=== PATIENT | male | born 1970 | race Caucasian/White ===

== ENCOUNTER 2017-04-17 14:45 | Inpatient (IN) | payer OTHER ==
--- NOTE | 2017-04-17 14:43 | EDPHY ---
H & P HPI/ROS: CHIEF COMPLAINT: Cardiac alert HISTORY OF PRESENT ILLNESS: 46-year-old male presents with an acute anterior WI. He was hiking on a steep trail at noon when he experienced sudden onset of epigastric and chest burning, described as heartburn. The heartburn sensation was severe, 10/10 and associated with diaphoresis. EMS was called. Upon their arrival, monitor showed an acute anterior WI. Aspirin 324 mg orally given. Nitroglycerin sublingually given with some relief in pain. [place] IV given for pain control. He was transported down the trail. Several episodes of vomiting; Zofran 4 mg x3 and Phenergan 12.5 mg once given for vomiting. He continues to have dry heaves. His pain is now rated 6/10. Vital signs were stable EN route. No prior history of heart disease. REVIEW OF SYSTEMS: Constitutional: No fever, no chills Eyes: No visual changes ENT: No sore throat Respiratory: No cough, no shortness of breath Gastrointestinal: No nausea, no vomiting, no abdominal pain Genitourinary: no dysuria Musculoskeletal: No leg pain or swelling Skin: No rash Neurological: No headache, no weakness Psychiatric: No depression Past Medical/Surgical History: Denies Social History: Visiting from [place]. Physical Exam: General Appearance: Alert, dry heaves on arrival Eyes: Pupils equal and round, no conjunctival pallor or injection ENT, Mouth: Mucous membranes moist Neck: Normal inspection Respiratory: Lungs are clear to auscultation Cardiovascular: Regular rate and rhythm Gastrointestinal: Abdomen is soft and non-tender Neurological: A&O, nonfocal exam Skin: Warm and dry, no rash Extremities: Nontender, no pedal edema Psychiatric: Anxious Constitutional: Initial Vital Signs Temperature (C) 36.9 C 04/17/17 14:45 Heart Rate 61 04/17/17 14:45 Respiratory Rate 20 04/17/17 14:45 Blood Pressure 140/88 H 04/17/17 14:45 O2 Sat (%) 99 04/17/17 14:45 O2 Delivery Mode Non-Rebreather Mask O2 (L/minute) 15 Allergies/Adverse Reactions: No Known Allergies Allergy (Unverified 04/17/17 15:01) Home Medications: Medication Instructions Recorded Albuterol Sulfate [Proair Hfa] 2 puffs IH Q4H PRN 04/17/17 Ciclopirox Olamine [Ciclopirox] 15 gm TP BID 04/17/17 Cyclobenzaprine [Cyclobenzaprine 5 mg PO TID PRN 04/17/17 HCl] Fluticasone/Salmeter 250/50Mcg 1 puffs IH BID 04/17/17 [Advair 250/50 (*)] Triamcinolone 0.1% [Triamcinolone 1 liset TP BID 04/17/17 0.1% Cream (*)] Valacyclovir HCl [Valtrex] 2,000 mg PO BID PRN 04/17/17 Medical Decision Making - Diagnostics EKG Interpretation: EKG interpreted by me reveals normal sinus rhythm, ST segment elevation in the anteriolateral leads. Imaging Results: Imaging Impressions Chest X-Ray 04/17/17 14:50 Impression: Negative portable chest. ED Course/Re-evaluation: 14:45 Met EMS at bedside. EKG reveals normal sinus rhythm, ST segment elevation in the anterior lateral leads. A 2nd IV was placed and the patient was prepped for the cath lab technologist. 14:49 Stat portable chest x-ray independently reviewed by me reveals no acute disease.. 14:50 4mg morphine IV for pain control. Sublingual nitro x2. 14:55 Patient concerned he may have vomited up aspirin. 324mg PO aspirin given. 15:03 onset of V-fib on monitor while I'm in the room. 200J administered. Began CPR. CPR for a few minutes. CPR stopped, pt in NSR. BP adequate. Pt alert, wondering what happened. Amiodarone 300mg IV administered. BP 115/79 after amiodarone. 15:05 Dr. Love at bedside. Lopressor 5mg IV x 1. Pt taken emergently to the cath lab technologist. No further dysrhythmias. This patient utilized 45 minutes of critical care time exclusive of unbundled procedures. Differential Diagnosis: Differential diagnosis includes though it is not limited to pneumonia, pneumothorax, pulmonary embolism, aortic dissection, pericarditis, acute coronary syndrome. - Data Points Laboratory Results: Laboratory Results 04/17/17 14:55 04/17/17 14:55 04/17/17 04/17/17 04/17/17 14:55 14:55 14:55 WBC 14.07 10^3/uL H 10^3/uL (3.80-9.50) RBC 5.47 10^6/uL 10^6/uL (4.40-6.38) Hgb 15.8 g/dL g/dL (13.7-17.5) Hct 44.2 % % (40.0-51.0) MCV 80.8 fL L fL (81.5-99.8) MCH 28.9 pg pg (27.9-34.1) MCHC 35.7 g/dL g/dL (32.4-36.7) RDW 13.0 % % (11.5-15.2) Plt Count 332 10^3/uL 10^3/uL (150-400) MPV 9.5 fL fL (8.7-11.7) Neut % (Auto) 81.0 % H % (39.3-74.2) Lymph % (Auto) 13.8 % L % (15.0-45.0) [place] % (Auto) 4.2 % L % (4.5-13.0) Eos % (Auto) 0.3 % L % (0.6-7.6) Baso % (Auto) 0.2 % L % (0.3-1.7) Nucleat RBC Rel Count 0.0 % % (0.0-0.2) Absolute Neuts (auto) 11.40 10^3/uL H 10^3/uL (1.70-6.50) Absolute Lymphs (auto) 1.94 10^3/uL 10^3/uL (1.00-3.00) Absolute Monos (auto) 0.59 10^3/uL 10^3/uL (0.30-0.80) Absolute Eos (auto) 0.04 10^3/uL 10^3/uL (0.03-0.40) Absolute Basos (auto) 0.03 10^3/uL 10^3/uL (0.02-0.10) Absolute Nucleated RBC 0.00 10^3/uL 10^3/uL (0-0.01) Immature Gran % 0.5 % % (0.0-1.1) Immature Gran # 0.07 10^3/uL 10^3/uL (0.00-0.10) PT 14.2 SEC SEC (12.0-15.0) INR 1.11 (0.83-1.16) APTT 23.9 SEC SEC (23.0-38.0) Sodium 141 mEq/L mEq/L (134-144) Potassium 4.7 mEq/L mEq/L (3.5-5.2) Chloride 106 mEq/L mEq/L (97-110) Carbon Dioxide 18 mEq/l L mEq/l (22-31) Anion Gap 17 mEq/L H mEq/L (8-16) BUN 20 mg/dL mg/dL (7-23) Creatinine 1.3 mg/dL mg/dL (0.7-1.3) Estimated GFR 59 Glucose 155 mg/dL H mg/dL (70-100) Calcium 10.4 mg/dL mg/dL (8.5-10.4) Troponin I 0.034 ng/mL ng/mL (0-0.034) NT-Pro-B Natriuret Pep < 11 pg/mL pg/mL (0-125) Medications Given: Discontinued Medications Aspirin (Aspirin) 324 mg PO EDNOW ONE Stop: 04/17/17 15:22 Last Admin: 04/17/17 14:57 Dose: 324 mg Aspirin Buffered (Aspirin Ec) 325 mg PO ONCE ONE Stop: 04/17/17 15:59 Last Admin: 04/17/17 17:46 Dose: Not Given Amiodarone HCl 300 mg/ (Dextrose) 106 mls @ 318 mls/hr IV ONCE ONE Stop: 04/17/17 15:40 Last Admin: 04/17/17 15:06 Dose: 106 mls Sodium Chloride (Ns) 1,000 mls @ 0 mls/hr IV ONCE ONE; Wide Open PRN Reason: Protocol Stop: 04/17/17 15:29 Last Admin: 04/17/17 15:05 Dose: 1,000 mls Metoprolol Tartrate (Lopressor Injection) 15 mg IVP EDNOW ONE Stop: 04/17/17 15:25 Last Admin: 04/17/17 15:09 Dose: 5 mg Morphine Sulfate (Morphine) 4 mg IVP EDNOW ONE Stop: 04/17/17 15:22 Last Admin: 04/17/17 14:53 Dose: 4 mg Nitroglycerin (Nitrostat) 0.4 mg SL EDNOW ONE Stop: 04/17/17 15:24 Last Admin: 04/17/17 14:58 Dose: 0.4 mg Ticagrelor (Brilinta) 180 mg PO ONCE ONE Stop: 04/17/17 15:59 Last Admin: 04/17/17 17:47 Dose: Not Given Departure - Departure Disposition: [facility] Inpatient Acute Clinical Impression: Acute coronary syndrome Condition: Critical Report Scribed for: Jenni Lemos Report Scribed by: Judith Leonardo Date of Report: 04/17/17 Time of Report: 14:44 Physician Review and Approval Statement: 04/17/17 14:44 Portions of this note were transcribed by a medical videographer. I personally performed a history, physical exam, medical decision making, and confirmed accuracy of information the transcribed note.
[2017-04-17] MEDS ORDERED: NITROGLYCERIN 0.4 MG BTL SL ONE ×2 (14:53→15:23)
[2017-04-17] MEDS ORDERED: ASPIRIN 81 MG CHEWABLE TAB ONE (14:56)
[2017-04-17] MEDS ORDERED: AMIODARONE HCL 150 MG/3 ML VIAL ONE (15:03)
[2017-04-17] MEDS ORDERED: LIDOCAINE 1% 300 MG/30 ML SDV ONE (15:06)
--- NOTE | 2017-04-17 15:06 | CPEKG ---
Heart Rate: 55 RR Interval: 1091 P-R Interval: 172 QRSD Interval: 106 QT Interval: 472 QTC Interval: 452 P [place]: 45 QRS [place]: 66 T Wave [place]: 43 EKG Severity - ABNORMAL ECG - EKG Impression: SINUS RHYTHM EKG Impression: Acute anterior lateral NM Electronically Signed By: Jenni Lemos 17-Apr-2017 17:52:25
[2017-04-17] MEDS ORDERED: MIDAZOLAM 2 MG/2 ML VIAL ONE (15:07)
[2017-04-17] MEDS ORDERED: METOPROLOL TARTRATE 5 MG/5 ML INJ ONE (15:07)
[2017-04-17] MEDS ORDERED: IOPAMIDOL (ISOVUE-370) 150 ML BTL IV ONE ×2 (15:07→15:45)
[2017-04-17] MEDS ORDERED: fentaNYL 100 MCG/2 ML INJ ONE (15:07)
[2017-04-17 15:10] LABS: % IMMATURE GRANULYOCYTES 0.5 % (0.0-1.1); ABSOLUTE IMMATURE GRANULOCYTES 0.07 10^3/uL (0.00-0.10); ADD DIFF? NO; ADD MORPH? NO; ADD SCAN? NO; ATYPICAL LYMPHOCYTE FLAG 0 (0-99); FRAGMENT RBC FLAG 0 (0-99); HEMATOCRIT 44.2 % (40.0-51.0); HEMOGLOBIN 15.8 g/dL (13.7-17.5); LEFT SHIFT FLG 10 (0-99); LIPEMIA HEMOLYSIS FLAG 90 (0-99); MEAN CELL HEMOGLOBIN 28.9 pg (27.9-34.1); MEAN CELL HEMOGLOBIN CONCENTR. 35.7 g/dL (32.4-36.7); MEAN CELL VOLUME 80.8 fL (81.5-99.8); MEAN PLATELET VOLUME 9.5 fL (8.7-11.7); PLATELET CLUMPS FLAG 0 (0-99); PLATELET COUNT 332 10^3/uL (150-400); RED BLOOD CELL COUNT 5.47 10^6/uL (4.40-6.38)
[2017-04-17 15:18] LABS: INR 1.11 (0.83-1.16); PROTIME(PATIENT) 14.2 SEC (12.0-15.0)
[2017-04-17 15:19] LABS: APTT 23.9 SEC (23.0-38.0)
[2017-04-17] MEDS ORDERED: AMIODARONE HCL 300 MG in D5W 100 ML IV ONE (15:21)
[2017-04-17] MEDS ORDERED: ASPIRIN 81 MG CHEWABLE TAB PO ONE (15:21)
[2017-04-17] MEDS ORDERED: METOPROLOL TARTRATE 5 MG/5 ML INJ IVP ONE (15:24)
[2017-04-17 15:26] LABS: ANION GAP 17 mEq/L (8-16); CALCIUM 10.4 mg/dL (8.5-10.4); CARBON DIOXIDE 18 mEq/l (22-31); CHLORIDE 106 mEq/L (97-110); CREATININE 1.3 mg/dL (0.7-1.3); GLOMERULAR FILTRATION RATE 59; GLUCOSE 155 mg/dL (70-100); POTASSIUM 4.7 mEq/L (3.5-5.2); SODIUM 141 mEq/L (134-144)
[2017-04-17] MEDS ORDERED: HEPARIN 10,000 UNIT/10 ML MDV ONE (15:26)
[2017-04-17] MEDS ORDERED: NS 1,000 ML IV ONE (15:28)
[2017-04-17] MEDS ORDERED: ATROPINE SULFATE 1 MG/10 ML SYR ONE (15:29)
[2017-04-17] MEDS ORDERED: EPINEPHrine 1 MG/10 ML SYR IVP ONE ×2 (15:29→15:55)
[2017-04-17 15:38] LABS: TROPONIN I 0.034 ng/mL (0-0.034)
[2017-04-17] MEDS ORDERED: TEMAZEPAM 15 MG CAP PO PRN (15:58)
[2017-04-17] MEDS ORDERED: TICAGRELOR 90 MG TAB PO ONE (15:58)
[2017-04-17] MEDS ORDERED: ASPIRIN EC 325 MG TAB PO ONE (15:58)
[2017-04-17] MEDS ORDERED: ATROPINE SULFATE 1 MG/10 ML SYR IVP PRN (15:58)
[2017-04-17] MEDS ORDERED: NITROGLYCERIN 0.4 MG BTL SL PRN (15:58)
[2017-04-17] MEDS ORDERED: HYDROCODONE/APAP 5/325 TAB PO PRN (15:58)
[2017-04-17] MEDS ORDERED: ONDANSETRON 4 MG/2 ML VIAL IVP PRN (15:58)
[2017-04-17] MEDS ORDERED: LORazepam 2 MG/ML INJ IVP PRN (15:58)
[2017-04-17] MEDS ORDERED: NS 1,000 ML IV SCH (16:00)
[2017-04-17] MEDS ORDERED: TICAGRELOR 90 MG TAB ONE (16:05)
--- NOTE | 2017-04-17 16:08 | PDDXCAT ---
Diagnostic Cath Note - . 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 ST segment elevation myocardial infarction with thrombotic occlusion of the proximal LAD. 2. Post PCI ejection fraction 40% with anteroapical akinesis. 3. Elevated filling pressures postprocedure Plan: Emergency PCI of the LAD Intervention: Procedure: PCI and stenting of the proximal LAD. Thrombectomy of the apical LAD with stenting. After reviewing diagnostic angiograms like to proceed with emergency angioplasty. Patient was anticoagulated with heparin. Integrilin infusion was begun. Using a 7 [place] JL4 guiding catheter left main coronary selectively intubated. Using a 0.014 luge wire the LAD stenosis was crossed and the wire placed in the distal vessel. Using a 2 mm balloon single inflation was performed in the proximal LAD reestablishing antegrade flow. Select disease with proximal stenting. A 4.0 by 20 mm synergy stent was placed across the proximal LAD stenosis. Was deployed doing a single inflation. Repeat orthogonal angiograms revealed MIGUEL grade 2 +flow. There was a cut off at the apex. Using a 2 mm balloon gentle inflation was performed at the apex without improvement. Thrombectomy was performed at the apex retrieving a small amount of dark thrombus. Repeat angiograms continued to show cut off. Patient was administered intracoronary nitroglycerin. A 2.25 x 16 mm cg stent was placed at the apex. It was deployed in a single inflation. Minimal penetration of dye into the stent was seen. A 4.5 by 15 mm NC balloon was used to post dilate the proximal LAD stent. At this point was elected to stop and pursue aggressive medical therapy. Impression: ST segment elevation myocardial infarction with proximal occlusion of the LAD status post successful PCI and stenting with a 4 x 20 mm synergy stent. Distal placement of a 2.25 x 16 synergy stent in the apical portion of the LAD with failure to establish flow to the apex. Patient will be continued on dual antiplatelet therapy uninterrupted for 1 year. 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 He will be begun on Willy inhibition, continue beta-consuelo, initiate eplerenone , high-dose statin therapy with clinical follow-up in the ICU. Patient Problems: Problems Problem Status Onset Acute coronary syndrome Acute
--- NOTE | 2017-04-17 16:11 | PDGENHP ---
History and Physical - Chief Complaint Chest pain - History of Present Illness 46-year-old male no prior cardiovascular history was [place] the [place]. He developed the acute onset of substernal chest pain 07/13. This was associated with significant diaphoresis. He was brought to the emergency department with an active cardiac alert. On arrival to the emergency department he had a ventricular fibrillation arrest requiring CPR and cardioversion. He was administered amiodarone. On my arrival he was having crushing 07/13 substernal chest pain associated with diaphoresis shortness of breath and feelings of impending doom. He was elected to proceed emergently to the cardiac catheterization lab for diagnostic and therapeutic angiogram. Allergies: None. Medications as an outpatient: None. Social history: Nonsmoker visiting from the [facility] area. Family history: Noncontributory. Surgical history: None. History Information - Allergies/Home Medication List Allergies/Adverse Reactions: No Known Allergies Allergy (Unverified 04/17/17 15:01) Home Medications: Advair 04/17/17 [Last Taken Unknown] I have personally reviewed and updated: family history, medical history, social history, surgical history - Past Medical History no pertinent PMH - Surgical History Reports: no pertinent surgical hx - Family History Positive for: non-pertinent - Social History Smoking Status: Never smoked Review of Systems ROS: 10pt was reviewed & negative except for what was stated in HPI & below Physical Exam Temp Pulse Resp BP Pulse Ox 36.9 C 61 22 H 115/69 100 04/17/17 14:45 04/17/17 15:10 04/17/17 15:10 04/17/17 15:10 04/17/17 15:10 Constitutional: uncomfortable Eyes: anicteric sclera Ears, Nose, Mouth, Throat: moist mucous membranes Cardiovascular: regular rate and rhythym, JVD, No systolic murmur Peripheral Pulses: 1+: carotid (R), carotid (L), 2+: femoral (R), femoral (L) Respiratory: no respiratory distress, no rales or rhonchi Gastrointestinal: normoactive bowel sounds, soft, non-tender abdomen, no palpable masses Genitourinary: no bladder fullness Skin: warm Musculoskeletal: full muscle strength, no muscle tenderness Neurologic: AAOx3 Psychiatric: anxious Lymph, Heme, Immunologic: no cervical LAD, no supraclavicular LAD Lab Data & Imaging Review 04/17/17 14:55 04/17/17 14:55 WBC 14.07 10^3/uL (3.80-9.50) H 04/17/17 14:55 RBC 5.47 10^6/uL (4.40-6.38) 04/17/17 14:55 Hgb 15.8 g/dL (13.7-17.5) 04/17/17 14:55 Hct 44.2 % (40.0-51.0) 04/17/17 14:55 MCV 80.8 fL (81.5-99.8) L 04/17/17 14:55 MCH 28.9 pg (27.9-34.1) 04/17/17 14:55 MCHC 35.7 g/dL (32.4-36.7) 04/17/17 14:55 RDW 13.0 % (11.5-15.2) 04/17/17 14:55 Plt Count 332 10^3/uL (150-400) 04/17/17 14:55 MPV 9.5 fL (8.7-11.7) 04/17/17 14:55 Neut % (Auto) 81.0 % (39.3-74.2) H 04/17/17 14:55 Lymph % (Auto) 13.8 % (15.0-45.0) L 04/17/17 14:55 [place] % (Auto) 4.2 % (4.5-13.0) L 04/17/17 14:55 Eos % (Auto) 0.3 % (0.6-7.6) L 04/17/17 14:55 Baso % (Auto) 0.2 % (0.3-1.7) L 04/17/17 14:55 Nucleat RBC Rel Count 0.0 % (0.0-0.2) 04/17/17 14:55 Absolute Neuts (auto) 11.40 10^3/uL (1.70-6.50) H 04/17/17 14:55 Absolute Lymphs (auto) 1.94 10^3/uL (1.00-3.00) 04/17/17 14:55 Absolute Monos (auto) 0.59 10^3/uL (0.30-0.80) 04/17/17 14:55 Absolute Eos (auto) 0.04 10^3/uL (0.03-0.40) 04/17/17 14:55 Absolute Basos (auto) 0.03 10^3/uL (0.02-0.10) 04/17/17 14:55 Absolute Nucleated RBC 0.00 10^3/uL (0-0.01) 04/17/17 14:55 Immature Gran % 0.5 % (0.0-1.1) 04/17/17 14:55 Immature Gran # 0.07 10^3/uL (0.00-0.10) 04/17/17 14:55 PT 14.2 SEC (12.0-15.0) 04/17/17 14:55 INR 1.11 (0.83-1.16) 04/17/17 14:55 APTT 23.9 SEC (23.0-38.0) 04/17/17 14:55 Sodium 141 mEq/L (134-144) 04/17/17 14:55 Potassium 4.7 mEq/L (3.5-5.2) 04/17/17 14:55 Chloride 106 mEq/L (97-110) 04/17/17 14:55 Carbon Dioxide 18 mEq/l (22-31) L 04/17/17 14:55 Anion Gap 17 mEq/L (8-16) H 04/17/17 14:55 BUN 20 mg/dL (7-23) 04/17/17 14:55 Creatinine 1.3 mg/dL (0.7-1.3) 04/17/17 14:55 Estimated GFR 59 04/17/17 14:55 Glucose 155 mg/dL (70-100) H 04/17/17 14:55 Calcium 10.4 mg/dL (8.5-10.4) 04/17/17 14:55 Troponin I 0.034 ng/mL (0-0.034) 04/17/17 14:55 NT-Pro-B Natriuret Pep < 11 pg/mL (0-125) 04/17/17 14:55 EKG Interpretation: Positive for: ST elevation Assessment & Plan Assessment: Acute coronary syndrome (Acute) ST segment elevation myocardial infarction. Status post ventricular fibrillation cardiac arrest. Plan: Emergency diagnostic therapeutic coronary angiogram.
--- NOTE | 2017-04-17 17:16 | CPEKG ---
Heart Rate: 59 RR Interval: 1017 P-R Interval: 188 QRSD Interval: 86 QT Interval: 468 QTC Interval: 464 P [place]: 45 QRS [place]: 81 T Wave [place]: 48 EKG Severity - NORMAL ECG - EKG Impression: SINUS RHYTHM EKG Impression: Acute anterolateral PR EKG Impression: Possible associated pericarditis EKG Impression: Evolving changes of acute anterolateral PR when compared with April 17, 2017, EKG Impression: 14:48 Electronically Signed By: Ramin Tirado 18-Apr-2017 07:53:19
[2017-04-17] MEDS: ATORVASTATIN CALCIUM 40 MG TAB PO SCH (18:16)
[2017-04-17] MEDS: CARVEDILOL 3.125 MG TAB PO SCH (19:06)
[2017-04-17 19:45] LABS: CK-MB INTERPRETATION POSITIVE (NEGATIVE)
[2017-04-17 21:27] LABS: INR 1.13 (0.83-1.16); PROTIME(PATIENT) 14.4 SEC (12.0-15.0)
[2017-04-17 21:28] LABS: APTT 30.8 SEC (23.0-38.0)
[2017-04-17 21:32] LABS: CK-MB INTERPRETATION POSITIVE (NEGATIVE)
[2017-04-17] MEDS: FUROSEMIDE 20 MG/2 ML VIAL IVP SCH (23:12)
[2017-04-18 01:49] LABS: CK-MB INTERPRETATION POSITIVE (NEGATIVE)
--- NOTE | 2017-04-18 03:20 | CPEKG ---
Heart Rate: 70 RR Interval: 857 P-R Interval: 266 QRSD Interval: 140 QT Interval: 484 QTC Interval: 523 P [place]: 0 QRS [place]: -102 T Wave [place]: 61 EKG Severity - ABNORMAL ECG - EKG Impression: SINUS RHYTHM EKG Impression: FIRST DEGREE AV BLOCK EKG Impression: RIGHT BUNDLE BRANCH BLOCK -- New since April 17, 2017, 17:15 EKG Impression: ANTERIOR INFARCT, EVOLVING EKG Impression: Can't rule out old inferior myocardial infarction. EKG Impression: Possible associated pericarditis. Electronically Signed By: Ramin Tirado 18-Apr-2017 07:51:12
[2017-04-18] MEDS: OXYCODONE/APAP 5/325 TAB PO PRN ×2 (04:01→20:10)
[2017-04-18] MEDS: TICAGRELOR 90 MG TAB PO SCH ×3 (04:09→21:03)
[2017-04-18 06:02] LABS: % IMMATURE GRANULYOCYTES 0.3 % (0.0-1.1); ABSOLUTE IMMATURE GRANULOCYTES 0.02 10^3/uL (0.00-0.10); ADD DIFF? NO; ADD MORPH? NO; ADD SCAN? NO; ATYPICAL LYMPHOCYTE FLAG 0 (0-99); FRAGMENT RBC FLAG 0 (0-99); HEMATOCRIT 38.1 % (40.0-51.0); HEMOGLOBIN 13.2 g/dL (13.7-17.5); LEFT SHIFT FLG 0 (0-99); LIPEMIA HEMOLYSIS FLAG 90 (0-99); MEAN CELL HEMOGLOBIN 28.9 pg (27.9-34.1); MEAN CELL HEMOGLOBIN CONCENTR. 34.6 g/dL (32.4-36.7); MEAN CELL VOLUME 83.4 fL (81.5-99.8); MEAN PLATELET VOLUME 9.2 fL (8.7-11.7); PLATELET CLUMPS FLAG 0 (0-99); PLATELET COUNT 228 10^3/uL (150-400); RED BLOOD CELL COUNT 4.57 10^6/uL (4.40-6.38); RED CELL DISTRIBUTION WIDTH 13.6 % (11.5-15.2)
[2017-04-18 06:21] LABS: ALANINE AMINOTRANSFERASE 42 IU/L (21-72); ALBUMIN 3.8 g/dL (3.5-5.0); ALKALINE PHOSPHATASE 34 IU/L (38-126); ANION GAP 9 mEq/L (8-16); ASPARTATE AMINOTRANSFERASE 161 IU/L (17-59); BILIRUBIN,TOTAL 3.1 mg/dL (0.1-1.4); BILIRUBIN-CONJUGATED 0.3 mg/dL (0.0-0.5); BILIRUBIN-UNCONJUGATED 2.8 mg/dL (0.0-1.1); CALCIUM 9.2 mg/dL (8.5-10.4); CARBON DIOXIDE 22 mEq/l (22-31); CHLORIDE 109 mEq/L (97-110); CHOLESTEROL 199 mg/dL (140-200); CREATININE 1.1 mg/dL (0.7-1.3); GLOMERULAR FILTRATION RATE > 60; GLUCOSE 93 mg/dL (70-100); HIGH DENSITY LIPOPROTEIN 51 mg/dL (40-65); LACTATE DEHYDROGENASE 799 IU/L (313-618); LDL/HDL RATIO 2.49 RATIO (1.00-3.64); LOW DENSITY LIPOPROTEIN 127 mg/dL (70-100); NON-HIGH DENSITY LIPOPROTEIN 148 mg/dL (90-129); POTASSIUM 4.2 mEq/L (3.5-5.2); SODIUM 140 mEq/L (134-144); TOTAL PROTEIN 6.4 g/dL (6.3-8.2); TRIGLYCERIDE 105 mg/dL (40-150); VERY LOW DENSITY LIPOPROTEINS 21 mg/dL (8-25)
[2017-04-18] MEDS ORDERED: FUROSEMIDE 20 MG/2 ML VIAL IVP ONE (08:18)
[2017-04-18] MEDS ORDERED: IBUPROFEN 200 MG TAB PO PRN (08:25)
[2017-04-18] MEDS: FUROSEMIDE 20 MG/2 ML VIAL IVP SCH ×2 (08:42→08:44)
[2017-04-18] MEDS: CARVEDILOL 3.125 MG TAB PO SCH ×2 (08:42→17:48)
[2017-04-18] MEDS: ASPIRIN EC 325 MG TAB PO SCH (08:43)
[2017-04-18] MEDS: ASPIRIN EC 81 MG TAB PO SCH (08:44)
--- NOTE | 2017-04-18 09:16 | SOAPPROG ---
[facility] Progress Note Assessment/Plan: Assessment: 1. STEMI status post PCI of the proximal LAD. 2. Status post VFIB cardiac arrest secondary to 1. 3. Ischemic cardiomyopathy ejection fraction 40% 4. Hyperlipidemia Procedures to date: ACLS with CPR and defibrillation. PCI LAD 04/17/2017 Impression: Day 1 status post anterior wall myocardial infarction treated by direct PCI. Ejection fraction 40% by ventriculogram. Overnight, modest ventricular ectopy. Chest wall discomfort post CPR and defibrillation. Stable hemodynamics. Markedly abnormal EKG with peak CPK so far 853. Plan: Transfer to PCU. Continue current medical therapy. Echocardiogram for LV recovery. Considerations for Life Vest prior to discharge. 04/18/17 09:12 Subjective: Doing well overnight without recurrent angina. Some chest wall tenderness to deep breaths and palpation. Patient denies palpitations, syncope, near syncope. He remains somewhat anxious. Family has arrived from [facility]. He denies PND orthopnea, peripheral edema. Objective: Laboratory Tests 04/17/17 04/17/17 04/18/17 19:02 20:50 01:05 Creatinine Creatine Kinase 216 364 H 853 H Troponin I 0.900 H 1.980 H 9.160 H LDL Cholesterol, Calc 04/18/17 05:50 Creatinine 1.1 Creatine Kinase Troponin I LDL Cholesterol, Calc 127 H Vital Signs Temp Pulse Resp BP Pulse Ox 37.5 C 63 20 114/74 96 04/18/17 04:00 04/18/17 08:42 04/18/17 08:00 04/18/17 08:42 04/18/17 08:00 Laboratory Results 04/18/17 05:50 04/18/17 05:50 04/17/17 04/18/17 04/19/17 05:59 05:59 05:59 Intake Total 1950 Output Total 1550 Balance 400 PT 14.4 SEC (12.0-15.0) 04/17/17 20:50 INR 1.13 (0.83-1.16) 04/17/17 20:50 Medications Generic Name Dose Route Start Last Admin Trade Name Freq PRN Reason Stop Dose Admin Aspirin Buffered 325 mg 04/18/17 09:00 04/18/17 08:43 Aspirin Ec PO 10/15/17 08:59 325 mg DAILY DANA Ticagrelor 90 mg 04/18/17 04:01 04/18/17 04:09 Brilinta PO 10/15/17 04:00 90 mg BID [facility] Atorvastatin Calcium 80 mg 04/17/17 16:00 04/17/17 18:16 Lipitor PO 10/14/17 15:59 80 mg DAILY [facility] Carvedilol 3.125 mg 04/17/17 18:00 04/18/17 08:42 Coreg PO 10/14/17 17:59 3.125 mg BIDMEAL [facility] Eplerenone 25 mg 04/18/17 09:00 Inspra PO 10/15/17 08:59 DAILY DANA Furosemide 20 mg 04/17/17 16:00 04/18/17 08:44 Lasix Injection IVP 10/14/17 15:59 Not Given DAILY [facility] Lisinopril 2.5 mg 04/18/17 09:00 Zestril PO 10/15/17 08:59 DAILY DANA Physical Exam - Physical Exam General Appearance: alert, no apparent distress EENT: PERRL/EOMI Neck: non-tender, full range of motion Respiratory: chest non-tender, lungs clear Cardiac/Chest: normal peripheral pulses, regular rate, rhythm, gallop, No edema , No JVD Peripheral Pulses: 1+: dorsalis-pedis (R), dorsalis-pedis (L), 2+: carotid (R), carotid (L), femoral (R) (Minimal ecchymosis, no bruit), femoral (L) Abdomen: normal bowel sounds, non-tender, soft Back: Normal inspection Skin: normal color, warm/dry Lymphatic: no adenopathy Extremities: normal range of motion, non-tender, No pedal edema, No calf tenderness Neuro/Psych: no motor/sensory deficits, alert, normal mood/affect ICD10 Worksheet Patient Problems: Problems Problem Status Onset Acute coronary syndrome Acute Review of Systems - Review of Systems Constitutional: denies: chills, fever EENTM: no symptoms reported Respiratory: no symptoms reported Cardiac: chest pain. denies: edema, irregular heart rate, lightheadedness, palpitations, syncope Gastrointestinal/Abdominal: no symptoms reported Genitourinary: no symptoms Musculoskelatal: no symptoms Skin: no symptoms Neurological: anxiety Hematologic/Lymphatic: no symptoms reported
[2017-04-18] MEDS: LISINOPRIL 2.5 MG TAB PO SCH (09:32)
[2017-04-18] MEDS: ATORVASTATIN CALCIUM 40 MG TAB PO SCH (09:33)
[2017-04-18 10:18] LABS: CK-MB INTERPRETATION POSITIVE (NEGATIVE)
--- NOTE | 2017-04-18 10:35 | ECHO ---
[id number] + + [address] : : [place] [address] : : [phone] + + Adult Echocardiographic Report + ---+ :Name: Melissa GRACE Date: 04/18/2017 09:09 AM : : Hospital Admission Number: [id number] Location: 252: :: 1970 Gender: Male Height: 69 in : :Age: 46 yrs Race: WH Weight: 180 lb : :Reason For Study: LV recovery post anterior NH : : BSA: 2.0 meters2 : :History: No previous : + ---+ MMode/2D Measurements \T\ Calculations IVSd: 0.89 cm LVIDd: 4.4 cmFS: 25.8 % LVLd ap4: 7.5 cm LVPWd: 1.0 cm LVIDs: 3.3 cmEDV(Teich): 89.4 ml EDV(MOD-sp4): 79.0 ml ESV(Teich): 43.9 ml LVLs ap4: 6.2 cm EF(Teich): 50.9 % ESV(MOD-sp4): 30.0 ml EF(MOD-sp4): 62.0 % SV(MOD-sp4): 49.0 ml Normal Measurement Values: + + :LVIDd (3.5-5.7cm) IVSd (0.6-1.1cm) LVPWd (0.6-1.1cm) Aortic Root (2.0-3.7cm)Left Atrium (1.5-4.0cm): :LV Vol(d) (76-115ml) LV Vol(s) (29-48ml) [place] Fraction (50-65%)PV Sea (0.6- 1.2m/s) TV Sea (0.4-1.0m/s) : :MV E Sea (0.8-1.0m/s)MV A Sea (0.3-1.0m/s)LVOT Sea (0.7-1.2m/s) Asc Ao Sea ( 0.9-1.8m/s) : + + Left Ventricle The left ventricle is normal in size. Ejection Fraction = 50-55%. Akinetic [place]. Pericardium/Pleural There is a fat pad seen. There is no pericardial effusion. Conclusion This is a limited study to evaluate LV function. Akinetic [place] Ejection Fraction = 50-55%. Final Reading Physician: Merary Bates signed on 04/18/2017 10:34 AM Ordering Physician: WADE MONIQUE Performed By: Liliana Michael
[2017-04-18] MEDS: EPLERENONE 25 MG TAB PO SCH (12:08)
--- NOTE | 2017-04-18 13:27 | CPEKG ---
Heart Rate: 68 RR Interval: 882 P-R Interval: 172 QRSD Interval: 94 QT Interval: 452 QTC Interval: 481 P [place]: 41 QRS [place]: 84 T Wave [place]: 57 EKG Severity - BORDERLINE ECG - EKG Impression: SINUS RHYTHM EKG Impression: ANTERIOR ST ELEVATION EKG Impression: BORDERLINE PROLONGED QT INTERVAL EKG Impression: RBBB PATTERN ABSENT IN THIS ECG (NOTED IN PRIOR) Electronically Signed By: Denzel Wiley 19-Apr-2017 10:07:32
[2017-04-18 17:07] LABS: CK-MB INTERPRETATION POSITIVE (NEGATIVE)
[2017-04-19 01:28] LABS: HEMOGLOBIN A1C 5.2 % (4.0-6.0)
[2017-04-19 07:51] VITALS: TEMP 98.4
--- NOTE | 2017-04-19 08:42 | CPEKG ---
Heart Rate: 70 RR Interval: 857 P-R Interval: 180 QRSD Interval: 92 QT Interval: 488 QTC Interval: 527 P [place]: 37 QRS [place]: 93 T Wave [place]: 69 EKG Severity - ABNORMAL ECG - EKG Impression: SINUS RHYTHM EKG Impression: BORDERLINE RIGHT AXIS DEVIATION EKG Impression: ABNORMAL T, CONSIDER ISCHEMIA, LATERAL LEADS EKG Impression: ST ELEVATION, ANTEROLATERAL LEADS EKG Impression: PROLONGED QT INTERVAL Electronically Signed By: Denzel Wiley 19-Apr-2017 10:08:03
[2017-04-19] MEDS: EPLERENONE 25 MG TAB PO SCH (08:45)
[2017-04-19] MEDS: LISINOPRIL 2.5 MG TAB PO SCH (08:45)
[2017-04-19] MEDS: ATORVASTATIN CALCIUM 40 MG TAB PO SCH (08:46)
[2017-04-19] MEDS: CARVEDILOL 3.125 MG TAB PO SCH (08:46)
[2017-04-19] MEDS: TICAGRELOR 90 MG TAB PO SCH (08:47)
[2017-04-19] MEDS: ASPIRIN EC 325 MG TAB PO SCH (08:47)
[2017-04-19] MEDS: FUROSEMIDE 20 MG/2 ML VIAL IVP SCH (09:00)
[2017-04-19 12:44] VITALS: BP 94/59; PULSE 59; RESP 14; O2SAT 94
[2017-04-19] MEDS: ASPIRIN EC 81 MG TAB PO SCH (12:55)
[2017-04-19] MEDS ORDERED: PNEUMOCOCCAL 0.5ML VACCINE VIAL IM ONE (13:36)
--- NOTE | 2017-04-19 23:45 | GDS ---
[f rep st] DISCHARGE SUMMARY ADMISSION DIAGNOSIS: Acute anterior wall myocardial infarction complicated by cardiac arrest. DISCHARGE DIAGNOSIS: 1. Acute anterior wall myocardial infarction complicated by cardiac arrest. 2. Hyperlipidemia. DISCHARGE MEDICATIONS: Please see the attached form 17. CONSULTATION DURING THIS HOSPITALIZATION: Dr. Drew Love, Cardiology. Office number . PROCEDURES PERFORMED DURING THIS HOSPITALIZATION: 1. Left heart catheterization, coronary and ventricular angiography with PCI and stenting of the LA D. 2. Echocardiogram. FOLLOWUP: With Dr. Love on Wednesday, low-level treadmill. Referral to cardiac rehabilitation. Follow up with Primary Care, [facility] with Dr. Thomas. HOSPITAL COURSE: The patient is 46 years old. He was hiking in [place] when he began experienci ng substernal chest pain. He was found to have a large anterior wall myocardial infarction by EKG. On arrival to the emergency department, he had a cardiac arrest requiring CPR with fracture of the ribs and required defibrillation. He was taken the cardiac quality assurance qa lab technician where he was found to have occl uded left anterior descending coronary artery proximally. He underwent successful PCI and stenting with thrombectomy. End result revealed excellent flow except for an apical portion of the LAD. Ini tial ejection fraction was 35%. Followup ejection fraction by echo showed LV recovery to 50%. The patient tolerated the procedure well. The 1st day was notable for frequent PVCs, by the 2nd day, th matilde had stopped. He had stable hemodynamics. PHYSICAL EXAMINATION: On the day of discharge: VITAL SIGNS: Blood pressure was 119/70, his heart r ate is 62. GENERAL: A well-nourished, well-developed male. CHEST: Clear to palpation. He had cr epitus on the right chest, consistent with CPR and fracture. He had mildly decreased breath sounds. CARDIAC: Regular rate and rhythm. There was no JVP. EXTREMITIES: His puncture site was healing well without significant ecchymosis, erythema or edema. He had intact distal pulses. His EKG showed evolving anterior wall myocardial infarction. LABORATORY DATA: Remarkable for a peak CPK of 1966, and a peak troponin of 126. His LDL cholestero l was noted to be 127 mg/dL. He was started on high-dose statin therapy, which he was tolerating we ll. PROBLEM LIST: 1. Status post anterior wall myocardial infarction with percutaneous coronary intervention and sten ting of the left anterior descending artery. The patient will be continued on dual antiplatelet the rapy for 1 year. A Synergy stent was used. He will be discharged home with EKG to take with him. Patient will be continued on aggressive medical therapy with beta blockade, Coreg 3.125 twice daily with up titration recommended. Low-dose KITA inhibitor with lisinopril 2.5 mg a day, as well as high dose Lipitor. He will have a low level treadmill before traveling. I encouraged him to go to [facility] rehabilitation. 2. Depression discussed. Questions were answered with him and his family. DISPOSITION: He is discharged home in stable condition with followup as outlined above. /[id number]/MODL
== END 2017-04-19 15:25 | disposition home or self-care (01) | DRG 246 ==
LOC: F2N 16:42 → F2W 04-18 14:20
PROVIDERS: ADMIT Internal Medicine Interventional Cardiology; ATTEND Internal Medicine Interventional Cardiology
PROC: 4A023N7 Measurement of Cardiac Sampling and Pressure, Left Heart, Percutaneous Approach (ICD-10-PCS; principal; 2017-04-17)
PROC: 02C03ZZ Extirpation of Matter from Coronary Artery, One Artery, Percutaneous Approach (ICD-10-PCS; principal; 2017-04-17)
PROC: 027034Z Dilation of Coronary Artery, One Artery with Drug-eluting Intraluminal Device, Percutaneous Approach (ICD-10-PCS; principal; 2017-04-17)
PROC: B2151ZZ Fluoroscopy of Left Heart using Low Osmolar Contrast (ICD-10-PCS; principal; 2017-04-17)
PROC: B2111ZZ Fluoroscopy of Multiple Coronary Arteries using Low Osmolar Contrast (ICD-10-PCS; principal; 2017-04-17)
DX: I21.09 ST elevation (STEMI) myocardial infarction involving other coronary artery of anterior wall (principal); I46.2 Cardiac arrest due to underlying cardiac condition; S22.49XA Multiple fractures of ribs, unspecified side, initial encounter for closed fracture; Y84.8 Other medical procedures as the cause of abnormal reaction of the patient, or of later complication, without mention of misadventure at the time of the procedure; I25.10 Atherosclerotic heart disease of native coronary artery without angina pectoris; I49.01 Ventricular fibrillation; E78.5 Hyperlipidemia, unspecified
CPT/HCPCS: 96374; C1725; C1757; C1760; C1769; C1874; C1887; C9606; G0009; J0282; J0461; J1644; J1940; J2250; J3010; Q9967